=== PATIENT | male | born 1960 | race Caucasian/White ===

== ENCOUNTER 2019-02-16 18:39 | Observation (INO) | payer SELFPAY ==
[2019-02-16] MEDS ORDERED: Ketorolac Tromethamine 30 MG/ML VIAL ONE (19:36)
[2019-02-16 20:26] LABS: Troponin I 0.012 ng/mL (< 0.028)
[2019-02-16] MEDS ORDERED: Ondansetron PF 4 MG/2 ML Vial IVP PRN ×2 (21:09→21:42)
[2019-02-16] MEDS ORDERED: Acetaminophen 325 MG TAB PO PRN ×2 (21:09→21:42)
[2019-02-16] MEDS ORDERED: Ondansetron ODT 4 MG TAB SL PRN (21:09)
[2019-02-16] MEDS ORDERED: Acetaminophen 650 MG Suppository PR PRN (21:42)
[2019-02-16] MEDS ORDERED: Ondansetron ODT 4 MG TAB PO PRN (21:42)
[2019-02-16] MEDS ORDERED: hydrALAZINE 20 MG/ML VIAL SLOW IVP PRN (21:47)
[2019-02-16] MEDS ORDERED: Diazepam 5 MG TAB PO PRN (22:11)
[2019-02-16] MEDS: Sodium Chloride 0.9% 1,000 ML IV SCH (22:23)
[2019-02-16] MEDS ORDERED: Magnesium 2 GM/50 ML 2 GM in Premix Bag 1 BAG IVPB SCH (22:30)
[2019-02-16] MEDS ORDERED: Thiamine 100 MG TAB PO SCH (22:30)
[2019-02-16] MEDS ORDERED: Folic Acid 1 MG TAB PO SCH (22:30)
[2019-02-16] MEDS ORDERED: Diazepam 5 MG TAB PO SCH (22:30)
[2019-02-16] MEDS ORDERED: Multivitamin W/ Minerals 1 TAB PO SCH (22:30)
--- NOTE | 2019-02-16 23:05 | HP ---
PRIMARY CARE PHYSICIAN: None. CHIEF COMPLAINT: Back pain and chest pain. HISTORY OF PRESENT ILLNESS: Mr. Vanessa is a 58-year-old gentleman with known history of coronary artery disease and hypertension, who has had stents placed in the past ([address] Ramos) who presents with complaints of back pain and chest pain. The patient states he has had back pain for 2 years and states that has progressively worsened. This week, it has become more prominent and he is now experiencing pain shooting down both legs. He has also noted altered sensation on the lateral aspect of his right lower extremity. The patient states in the last couple of days, he has started experiencing shortness of breath and pain on the lateral chest bilaterally. The patient states it is sharp in nature and lasts a few minutes at a time. Denies any central chest pain. He states the shortness of breath is present with exertion, but has become more noticeable with minimal exertion. He denies any lower extremity swelling or edema. He reports having a chronic cough and denies any history of smoking. He does drink alcohol heavily , up to 8-10 beers a day. Denies having any recent fevers, chills, or sweats. Denies having any headaches or dizziness. Denies any abdominal pain or cramping. He does report occasional dry heaving in the mornings without any actual vomiting. Denies any changes with his bowels. No urinary symptoms. All other review of systems are negative. According to the patient, he was previously prescribed medications which included Coreg. He never did follow up with a primary care physician after he was discharged from the hospital here in November 2012, following presentation with an NSTEMI requiring stent placement. He was discharged on aspirin, Lipitor, Plavix , lisinopril and Lopressor as well as multivitamin, thiamine, and Protonix. The patient did not continue with any of these medications once they ran out. His current girlfriend has been giving him her ex-'s medications including carvedilol and allopurinol. In the emergency department, he has undergone laboratory studies including troponin which was negative. EKG was done showing normal sinus rhythm with no ST changes or T-wave abnormalities. He was given Toradol 30 mg IV for his back pain. PAST MEDICAL HISTORY: 1. Coronary artery disease. 2. History of LA, treated with stent placement in in 2012. 3. Hypertension. 4. Alcohol abuse. PAST SURGICAL HISTORY: Cardiac stent. SOCIAL HISTORY: The patient lives with his significant other. He reports drinking 8-10 beers a day. Denies any tobacco use. Denies any illicit drug use. FAMILY HISTORY: Noncontributory. ALLERGIES: NO KNOWN DRUG ALLERGIES. CURRENT MEDICATIONS: 1. The patient has been taking his girlfriend's ex-'s Coreg, dose unknown. 2. Allopurinol, provided by his girlfriend. 3. 81 mg aspirin p.o. at bedtime. 4. CoQ10 of 10 mg p.o. daily. PHYSICAL EXAMINATION: GENERAL: The patient appears disheveled with poor dentition, in no acute distress. VITAL SIGNS: Temperature 98.1, pulse 62, blood pressure 149/82, respirations 16 , O2 saturation 96% on room air. HEENT: Normocephalic and atraumatic. Pupils are equal, round, and reactive to light. Sclerae without icterus. Oropharynx is notable for very poor dentition. NECK: Supple. LUNGS: Clear to auscultation bilaterally. CARDIAC: Regular rate and rhythm. ABDOMEN: Soft, nontender, nondistended. Normoactive bowel sounds present. EXTREMITIES: No lower leg swelling or edema. NEUROLOGIC: Alert and oriented x3. Power 5/5 in all limbs with slightly reduced sensation involving the lateral aspect of the right lower extremity from lower leg extending up to the mid thigh. SKIN: Warm and dry. INVESTIGATIONS: As mentioned above in HPI. IMPRESSION AND PLAN: Mr. Vanessa is a pleasant 58-year-old gentleman, who presents with complaints of mainly back pain that has progressing for the last 2 years and has become increasingly worse in the last few days. The chest pain along with shortness of breath with minimal exertion began two days ago. He has been referred for management of the following. 1. Acute coronary syndrome rule out. Continue to trend troponins. The patient does have a history of non ST-elevation myocardial infarction and underwent a stent in the past, previously seen by Dr. Ramos. Consultation placed to Cardiology. The patient has been self medicating with his girlfriend's ex-'s medications including carvedilol. We will hold all these medications as they were not prescribed specifically to him, but will continue baby aspirin. Echo requested. Of note, laboratory studies done in the ER included a D-dimer, which was negative. Chest x-ray unremarkable. 2. Back pain. The patient states pain has been radiating down both legs with some altered sensation involving the right lower extremity. We will obtain an MRI of the thoracic lumbar spine. The pain he is experiencing on the bilateral rib cages could be due to radiculopathy. 3. Hypertension, uncontrolled. Monitor blood pressure and clonidine p.r.n. 4. Alcohol abuse. Initiate EVELINA protocol. P.r.n. medications ordered. We will give one-time dose of diazepam 10 mg p.o. as per protocol. 5. Gastrointestinal prophylaxis with famotidine. 6. Deep venous thrombosis prophylaxis with mechanical SCDs. 7. Code status, full. Surrogate decision maker is his significant other, Tash Calderon. The patient's case was discussed with Dr. Cameron, who agrees with the plan of care as described above. Job ID: [id number] MTDD
[2019-02-17 06:01] LABS: Anion Gap 16 mmol/L (10-20); BUN (Urea Nitrogen) 11 mg/dL (8.4-25.7); Calc. Creatinine Clearance 145 mL/min (70-130); Calcium 8.8 mg/dL (7.8-10.44); Carbon Dioxide 23 mmol/L (22-29); Chloride 105 mmol/L (98-107); Estimated GFR-MDRD Greater than 90; Glucose 84 mg/dL (70-105); Potassium 4.1 mmol/L (3.5-5.1); Sodium 140 mmol/L (136-145)
[2019-02-17 06:35] LABS: #Basophils 0.1 thou/uL (0.0-0.2); #Eosinphils 0.1 thou/uL (0.0-0.7); #Monocytes 0.4 thou/uL (0.11-0.59); %Basophils 1.5 % (0.0-1.0); %Eosinophils 2.4 % (0.0-10.0); %Lymphocytes 43.5 % (21.0-51.0); %Monocytes 8.2 % (0.0-10.0); %Neutrophils 44.5 % (42.0-75.0); Hemoglobin 13.8 g/dL (14.0-18.0); Mean Corpuscular HGB CONC 34.5 g/dL (32.0-36.0); Mean Corpuscular Hemoglobin 32.4 pg (27.0-31.0); Mean Corpuscular Volume 93.9 fL (78.0-98.0); Platelet Count 75 thou/uL (130-400); Platelet Morphology Comment Appears Decreased; RBC Distribution Width 13.2 % (11.5-14.5); Red Blood Cell (RBC) Count 4.26 mill/uL (4.70-6.10); White Blood Cell (WBC) Count 4.5 thou/uL (4.8-10.8)
[2019-02-17] MEDS: Thiamine 100 MG TAB PO SCH (08:25)
[2019-02-17] MEDS: Carvedilol 3.125 MG TAB PO SCH ×2 (08:25→16:34)
[2019-02-17] MEDS: Folic Acid 1 MG TAB PO SCH (08:25)
[2019-02-17] MEDS: Multivitamin W/ Minerals 1 TAB PO SCH (08:25)
[2019-02-17] MEDS: Aspirin 81 mg Enteric Coated Tablet PO SCH (08:25)
[2019-02-17] MEDS ORDERED: Lisinopril 5 MG TAB PO SCH (09:00)
[2019-02-17] MEDS ORDERED: Famotidine/PF 20 mg/2ml Vial SLOW IVP SCH (09:00)
[2019-02-17 09:16] LABS: Bacteria/HPF 1+ HPF (None Seen); Bilirubin Negative (Negative); Blood, Urine Negative (Negative); Clarity Clear (Clear); Glucose, Urine (Dipstick) Normal (Negative); Leukocyte 25 Leu/uL (Negative); Nitrite Negative (Negative); Protein, Urine (Dipstick) Negative (Neg-Trace); RBC/HPF 0-3 HPF (0-3); Squamous Epithelial None Seen HPF (0-3); Urobilinogen Normal mg/dL (Less than 2)
[2019-02-17 09:17] LABS: Urine Culture Reflex Yes Yes
[2019-02-17 09:27] LABS: Medtox Reader # READER 1
[2019-02-17 09:28] LABS: Amphetamine Not Detected (NotDetected); Barbiturates Screen Not Detected (NotDetected); Benzodiazepine Screen Detected (NotDetected); Cocaine Metabolite Screen Not Detected (NotDetected); Medtox Control Line Valid? VALID (VALID); Methadone Not Detected (NotDetected); Methamphetamine Not Detected (NotDetected); Opiate Screen Not Detected (NotDetected); Oxycodone Screen Not Detected (NotDetected); Phencyclidine (PCP) Not Detected (NotDetected); THC/Cannabinoid Screen Not Detected (NotDetected); Tricyclic Screen Not Detected (NotDetected)
[2019-02-17] MEDS: cloNIDine 0.1 MG TAB PO PRN (09:49)
--- NOTE | 2019-02-17 11:49 | PDOC.HOSPP ---
- Subjective Encounter Date: 02/17/19 Encounter Time: 08:06 Subjective: 58 y/o male with chronic alcohol abuse, CAD, HTN and non complaince admitted with acute worsening of chronic back pain with radiation to the legs as well as bilateral lateral chest pain associated with SOB and cough. D dimer was negative. Feeling better with improvement of pain. - Objective Vital Signs & Weight: Vital Signs (12 hours) Temp Pulse Resp BP BP Pulse Ox 02/17/19 07:33 97.7 F 63 16 215/102 H 95 02/17/19 04:26 58 L 18 154/79 H 96 Weight Weight 191 lb 8 oz I&O: 02/16/19 02/17/19 02/18/19 06:59 06:59 06:59 Intake Total 50 Balance 50 Result Diagrams: 02/17/19 05:05 02/17/19 05:05 Hospitalist ROS - Medication Medications: Active Medications Generic Name Dose Route Start Last Admin Trade Name Freq PRN Reason Stop Dose Admin Acetaminophen 650 mg 02/16/19 21:42 02/17/19 08:25 Tylenol PO 650 mg Q4H PRN Administration Headache/Fever/Mild Pain (1-3) Aspirin 81 mg 02/17/19 09:00 02/17/19 08:25 Ecotrin PO 81 mg DAILY SOLEDAD Administration Carvedilol 3.125 mg 02/17/19 08:00 02/17/19 08:25 Coreg PO 3.125 mg BID-WM SOLEDAD Administration Clonidine 0.1 mg 02/16/19 22:19 02/17/19 09:49 Catapres PO 0.1 mg Q4H PRN Administration SBP Greater Than 170 Famotidine 20 mg 02/17/19 09:00 02/17/19 08:27 Pepcid SLOW IVP 20 mg Q12HR SOLEDAD Administration Folic Acid 1 mg 02/17/19 09:00 02/17/19 08:25 Folvite PO 1 mg DAILY SOLEDAD Administration Sodium Chloride 1,000 mls @ 65 mls/hr 02/16/19 21:45 02/16/19 22:23 Normal Saline 0.9% IV 1,000 mls .[id number] SOLEDAD Administration Iron/Minerals/Multivitamins 1 tab 02/17/19 09:00 02/17/19 08:25 Theragran M PO 1 tab DAILY SOLEDAD Administration Lisinopril 5 mg 02/17/19 09:00 02/17/19 08:25 Zestril PO 5 mg DAILY SOLEDAD Administration Thiamine HCl 100 mg 02/17/19 09:00 02/17/19 08:25 Thiamine PO 100 mg DAILY SOLEDAD Administration - Exam General Appearance: awake alert Eye: anicteric sclera ENT: normocephalic atraumatic Neck: symmetric, no JVD Heart: RRR, murmur present Respiratory: no wheezes, no rales, no ronchi, normal chest expansion Gastrointestinal: soft, non-tender, non-distended, normal bowel sounds Extremities: no cyanosis, no edema Neurological: cranial nerve grossly intact, no focal deficits Neurological - other findings: No tremor Psychiatric: normal affect, A&O x 3 Hosp A/P (1) Atypical chest pain Code(s): R07.89 - OTHER CHEST PAIN Status: Acute (2) Acute exacerbation of chronic low back pain Code(s): M54.5 - LOW BACK PAIN; G89.29 - OTHER CHRONIC PAIN Status: Acute (3) Chronic alcohol abuse Code(s): F10.10 - ALCOHOL ABUSE, UNCOMPLICATED Status: Acute (4) HTN (hypertension) Code(s): I10 - ESSENTIAL (PRIMARY) HYPERTENSION Status: Acute (5) CAD (coronary artery disease) Code(s): I25.10 - ATHSCL HEART DISEASE OF [place] CORONARY ARTERY W/O ANG PCTRS Status: Acute (6) Heart murmur Code(s): R01.1 - CARDIAC MURMUR, UNSPECIFIED Status: Acute - Plan Start coreg and lisinopril for CAD and BP control. benzodiazepines for alcohol withdrawal prophylaxis to continue Await Echo and MRI of the back Awaiting cardiology evaluation.
[2019-02-17] MEDS: Lorazepam 2 MG/ML VIAL SLOW IVP PRN (13:24)
[2019-02-17] MEDS: Sodium Chloride 0.9% 1,000 ML IV SCH (14:19)
--- NOTE | 2019-02-17 15:35 | CON ---
DATE OF CONSULTATION: 02/17/2019 PRIMARY DEVELOPER RELATIONS MANAGER: Chris Ramos. REASON FOR CONSULTATION: Chest pain. HISTORY OF PRESENT ILLNESS: Mr. Vanessa is a pleasant 58-year-old white gentleman, who comes to the hospital for actually lower back pain and some chest pain. He noticed lower back pain for the last 2 years that has progressively worsened and getting worse in the last few days. Pain down both legs with shooting pain, some weakness and some numbness and tingling going down both legs. He got worse, so he decided to come in for this. He has a history of coronary artery disease. He had a cardiac arrest and had to have stent placed to an occluded OM. This was back in 2012. He states that he has been noticing chest pain which is on the right side and the left side, on the sides, pretty much lasts all day. Does not get any worse or better with position or exertion, this is there all day. The only thing that makes it go away is going to sleep at night. He continues to drink about 12 beers a day. He tells me that some days it is more, some days it is less. PAST MEDICAL HISTORY: 1. Coronary artery disease as above. 2. History of VT arrest, status post stent placement to an OM1 in 2012. 3. Hypertension. 4. Alcohol use. PAST SURGICAL HISTORY: Cardiac catheterization with stents as above. SOCIAL HISTORY: Drinks about 12 beers a day. No tobacco. No drug use. FAMILY HISTORY: Noncontributory. OUTPATIENT MEDICATIONS: 1. Coreg, unknown dose. 2. Allopurinol. 3. Aspirin 81 a day. 4. CoQ10. ALLERGIES: NO KNOWN DRUG ALLERGIES. REVIEW OF SYSTEMS: A 12-point review of systems was done and all negative unless stated in the history of present illness. He has noticed his blood pressure has been very high recently. PHYSICAL EXAMINATION: VITAL SIGNS: Temperature 97.9, pulse 63, respiratory rate 18, sat 95% on room air, blood pressure 184/92. GENERAL: Awake, alert, oriented x3, in no distress. HEENT: Normocephalic and atraumatic. NECK: Supple. LUNGS: Clear. CARDIOVASCULAR: S1 and S2. No S3 or S4. No murmurs. ABDOMEN: Soft. Positive bowel sounds. EXTREMITIES: No edema. SKIN: Warm and dry. LABORATORY DATA: Laboratory work was reviewed. White count of 4, hemoglobin of 13, hematocrit 40, and platelet count of 75. Chemistries were unremarkable. Troponin was negative x2. BNP is 34. Magnesium was 2.0. UA with 4 to 6 white cells, 1+ bacteria. Toxicology positive for benzodiazepines. Plasma alcohol is 298. Lumbar and thoracic spine MRIs are pending. ASSESSMENT: 1. Atypical chest pain. 2. History of coronary artery disease. 3. No acute coronary syndrome at this time. 4. Lower back pain. 5. Alcohol abuse. PLAN: 1. We will get echocardiogram. We will assess. We will further risk stratify with a stress test. We will plan on doing this tomorrow as he ate today. 2. No evidence of an acute coronary syndrome at this time. I would not anticoagulate given the possibility of having lumbar and thoracic spine issues. 3. Encourage to stop alcohol use. 4. I expect him to have issues with alcohol withdrawal if he stays here long enough. 5. Dr. Ramos, his primary carbon grinder will follow up in the morning. Thank you for letting us to participate in the care of your patient. Job ID: [id number] [facility]
--- NOTE | 2019-02-17 16:37 | MRI ---
MRI thoracic spine noncontrast: DATE: 02/17/2019 HISTORY: 58-year-old male with mid back pain. 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 There is no bone marrow edema. Vertebral body heights are maintained. Thoracic spinal cord is normal in size and signal. No extrinsic cord impingement. No high-grade central spinal canal stenosis at any level. Unre markable perivertebral spaces. IMPRESSION: No major pathology identified.
--- NOTE | 2019-02-17 17:02 | MRI ---
MRI Lumbar Spine Noncontrast: HISTORY: Low back pain with pain radiating into bilateral lower extremities. Altered sensation. COMPARISON: None FINDINGS: A tiny approximately 4 mm increased T2-weighted signal intensity structure is seen in the medial aspe ct superior pole right kidney difficult to characterize in this exam. Retroperitoneal structures otherwise have a normal MRI appearance. Conus medullaris is normal in morphology and terminates at the L1 level. There is an area of increased T1 and T2-weighted signal intensity seen in the T12 vertebral body like ly related to a hemangioma. There is nonspecific generalized heterogeneity of the bone marrow likely due to conversion to red marrow. L1-2: There is no disc bulge or disc herniation. Central spinal canal and neural foramina are patent. L2-3: There is mild disc osteophyte complex present with slight effacement of the thecal sac anterior ly. Mild bilateral neural foraminal narrowing is present. L3-4: Broad-based disc osteophyte complex is present with associated central disc protrusion. This re sults in moderate to severe narrowing of the central spinal canal. Moderate bilateral neural foraminal narrowing is present. L4-5: Mild broad-based disc osteophyte complex is present with small central disc protrusion. Facet h ypertrophic changes are present. Findings result in mild narrowing of the central spinal canal with mild right-sided neural foraminal narrowing. Minimal left-sided neural foraminal narrowing is present . L5-S1: There is loss of intervertebral disc height. Broad-based disc osteophyte complex is present wi th effacement of the ventral aspect of the thecal sac and encroaches on the traversing bilateral S1 nerve roots and may potentially contact but does not displace the traversing right S1 nerve root. Fac et hypertrophic changes are seen at this level. There is moderate to severe bilateral neural foraminal narrowing IMPRESSION: 1. Degenerative changes in the lumbar spine greatest at the L3-4 and L5-S1 levels. 2. Generalized heterogeneity of the bone marrow which is overall nonspecific but is most likely attri butable to conversion to red marrow.
[2019-02-17] MEDS: Famotidine 20 MG TAB PO SCH (21:39)
[2019-02-17] MEDS: Lisinopril 10 MG TAB PO SCH (21:39)
[2019-02-17] MEDS ORDERED: Diazepam 5 MG TAB PO PRN (22:11)
[2019-02-18] MEDS: cloNIDine 0.1 MG TAB PO PRN (04:21)
[2019-02-18 08:03] VITALS: TEMP 97.6
[2019-02-18] MEDS: Carvedilol 3.125 MG TAB PO SCH (08:03)
[2019-02-18] MEDS: Famotidine 20 MG TAB PO SCH (08:12)
[2019-02-18] MEDS: Aspirin 81 mg Enteric Coated Tablet PO SCH (08:12)
[2019-02-18] MEDS: Thiamine 100 MG TAB PO SCH (08:13)
[2019-02-18] MEDS: Lisinopril 10 MG TAB PO SCH (08:13)
[2019-02-18] MEDS: Multivitamin W/ Minerals 1 TAB PO SCH (08:13)
[2019-02-18] MEDS: Folic Acid 1 MG TAB PO SCH (08:13)
[2019-02-18] MEDS: Lorazepam 2 MG/ML VIAL SLOW IVP PRN (08:57)
--- NOTE | 2019-02-18 10:31 | NM ---
NUCLEAR MEDICINE CARDIAC MYOCARDIAL PERFUSION SPECT EJECTION FRACTION STUDY WALL MOTION CINE: DATE: 02/18/2019 HISTORY: 58-year-old male with history of coronary artery disease, hypertension, and prior myocardial infarcti on, presents with acute chest pain. TECHNIQUE: Number of days: 2 Rest study: Technetium 99m-sestamibi (Cardiolite) dose: 28.2 mCi Pharmacologic stress: Adenosine dose: 48.7 mg Stress study: Technetium 99m-sestamibi (Cardiolite) dose: 33.0 mCi FINDINGS: CARDIAC (MYOCARDIAL PERFUSION) SPECT There are no reversible myocardial perfusion defects. EJECTION FRACTION STUDY Left ventricular EF = 50 % WALL MOTION CINE Normal IMPRESSION: No evidence of reversible ischemia.
[2019-02-18] MEDS ORDERED: Carvedilol 3.125 MG TAB PO SCH ×2 (10:45→17:00)
[2019-02-18] MEDS ORDERED: Losartan 25 MG TAB PO SCH (11:00)
--- NOTE | 2019-02-18 11:34 | DIS ---
DATE OF ADMISSION: 02/16/2019 DATE OF DISCHARGE: 02/18/2019 PRIMARY CARE PHYSICIAN: None. DISCHARGE DIAGNOSES: 1. Atypical chest pain. 2. Acute exacerbation of chronic low back pain. 3. Alcohol abuse, chronic. 4. Uncontrolled hypertension. 5. Coronary artery disease, status post prior myocardial infarction. 6. Heart failure, heart murmur. 7. Lumbar spondylosis. 8. Diastolic heart failure. 9. Cardiomyopathy with inferolateral akinesis. CONSULTS: Cardiology. HOSPITAL COURSE: A 58-year-old male with known history of chronic alcohol abuse, coronary artery disease, status post prior LA, hypertension, and noncompliance, admitted with acute worsening of chronic back pain with radiation to the legs as well as bilateral lateral chest pain, associated with shortness of breath and cough. Due to pleuritic chest pain, there was some concern about pulmonary embolism, but this was ruled out with D-dimer, which was negative. Acute myocardial infarction was ruled out with serial troponin. Cardiology consult was obtained, and echocardiogram and nuclear stress test were recommended. Echo showed inferolateral myocardial wall thinning and akinesis, but with preserved systolic function as well as diastolic dysfunction. Heart failure medication and antihypertensive were initiated with improvement. The patient also received analgesics for back pain with improvement. Further evaluation with MRI of the thoracic and lumbar spine showed degenerative joint disease, especially at L3-L4 and L5-S1; however, there was no cord compression or myelopathy. Back pain improved. The patient remained stable and was subsequently discharged home. The patient was advised to stop smoking and alcohol. PHYSICAL EXAMINATION: VITAL SIGNS: Temperature 97.6, pulse 62, respiratory rate 14, SpO2 95% on room air, and blood pressure is 179/75. GENERAL: A middle-age male, in no distress. Afebrile. Anicteric. Acyanotic. HEENT: Normocephalic and atraumatic. Oral mucosa is moist. CARDIOVASCULAR: Regular rhythm and rate with soft systolic murmur. RESPIRATORY: Fair air entry bilaterally few transmitted breath sounds. No obvious crackle or rhonchi was appreciated. GI: Full, soft, nontender, nondistended with normal bowel sounds. EXTREMITIES: Grossly normal looking atraumatic with no edema or erythema. DISCHARGE DISPOSITION: Home. DISCHARGE CONDITION: Improved. DISCHARGE MEDICATIONS: 1. Aspirin 81 mg p.o. daily. 2. Carvedilol 3.125 mg p.o. b.i.d. 3. Losartan 50 mg p.o. b.i.d. 4. Multivitamin 1 tablet p.o. daily. DISCHARGE INSTRUCTIONS: 1. To follow up with PCP in 1 week. 2. The patient was advised to stop tobacco use as well as alcohol use. He was instructed to be compliant with his medications and followup. FOLLOWUP: 1. With PCP in 1 week. 2. With Cardiology in 3 to 4 weeks. Job ID: [id number]
[2019-02-18] MEDS ORDERED: ADENOSINE 60 MG/20 ML VIAL ONE (12:00)
[2019-02-18 12:11] VITALS: BP 179/83
== END 2019-02-18 12:59 | disposition home or self-care (01) ==
LOC: ERS 18:39 → 2SW 19:13
PROVIDERS: ADMIT Internal Medicine; ATTEND Internal Medicine
DX: R07.1 Chest pain on breathing (principal); G89.29 Other chronic pain; M54.5 Low back pain; M47.816 Spondylosis without myelopathy or radiculopathy, lumbar region; I11.0 Hypertensive heart disease with heart failure; I50.30 Unspecified diastolic (congestive) heart failure; I25.10 Atherosclerotic heart disease of native coronary artery without angina pectoris; I25.2 Old myocardial infarction; F10.10 Alcohol abuse, uncomplicated; Z79.82 Long term (current) use of aspirin; Z79.899 Other long term (current) drug therapy; Z91.19 Patient's noncompliance with other medical treatment and regimen; Z95.5 Presence of coronary angioplasty implant and graft; I42.9 Cardiomyopathy, unspecified
CPT/HCPCS: 36415; 72146; 72148; 78452; 80048; 80306; 80307; 81001; 83735; 83880; 85025; 87086; 93005; 93017; 93306; 96361; 96374; 96375; 96376; A9500; G0378; J0153; J1885; J2060; J3475; S0028